=== PATIENT | male | born 1990 | race Caucasian/White ===

== ENCOUNTER 2017-04-12 11:39 | Emergency (ER) | payer SELFPAY ==
[~2017-04-12] VITALS: Ht 182.9 cm; Wt 79.0 kg
[2017-04-12] MEDS: ONDANSETRON HCL 4MG/2ML VIAL IV STA (12:40)
[2017-04-12] MEDS: SODIUM CHLORIDE 0.9% 1,000 ML IV ONE ×2 (12:40→15:20)
[2017-04-12 12:56] LABS: BASOPHILS % 0.4 % (0.0-2.0); EOSINOPHILS % 1.5 % (0.0-5.0); HEMATOCRIT. 44.2 % (42.0-52.0); HEMOGLOBIN. 15.3 g/dL (14.0-18.0); LYMPHOCYTES % 10.6 % (20.0-50.0); MEAN CORPUSCULAR HEMOGLOBIN 31.6 pg (28.0-32.0); MEAN CORPUSCULAR VOLUME 91.4 fL (80.0-94.0); MEAN PLATELET VOLUME 8.2 fl (7.4-10.4); MONOCYTES % 3.4 % (2.0-8.0); NEUTROPHILS % 84.1 % (40.0-76.0); PLATELET 185 x1000/uL (130-400); RED BLOOD CELL COUNT 4.83 mill/uL (4.7-6.1); RED CELL DISTRIBUTION WIDTH 12.8 % (11.6-14.6)
[2017-04-12 12:58] LABS: CLARITY URINE CLEAR (CLEAR); COLOR URINE YELLOW (YELLOW); KETONES URINE NEGATIVE (NEGATIVE); LEUKOCYTE ESTERASE URINE NEGATIVE (NEGATIVE); NITRITE URINE NEGATIVE (NEGATIVE); OCCULT BLOOD URINE 1+ (NEGATIVE); PROTEIN URINE NEGATIVE (NEGATIVE); UROBILINOGEN URINE 0.2 E.U./dL (0.2-1.0)
[2017-04-12] MEDS ORDERED: METOCLOPRAMIDE HCL 10MG/2ML VIAL IV ONE (13:00)
[2017-04-12 13:03] LABS: AMMONIA < 25 uMol/L (<32); CARBON DIOXIDE 27 mEq/L (21-32); CHLORIDE 109 mEq/L (98-107); ETHANOL BLOOD < 10 mg/dL
[2017-04-12 13:08] LABS: CREATINE KINASE 91 IU/L (39-308)
[2017-04-12 13:10] LABS: TROPONIN I < 0.02 ng/mL (0.00-0.04)
[2017-04-12] MEDS ORDERED: PROCHLORPERAZINE 10MG/2ML VIAL IV ONE (13:15)
[2017-04-12] MEDS: PROCHLORPERAZINE 10MG/2ML VIAL IV NR (13:37)
[2017-04-12 13:52] LABS: *AMPHETAMINES SCREEN URINE PRESUMTIVE POSITIVE (NEGATIVE); *BARBITURATES SCREEN URINE NEGATIVE (NEGATIVE); *BENZODIAZEPINES SCREEN URINE NEGATIVE (NEGATIVE); *COCAINE SCREEN URINE NEGATIVE (NEGATIVE); CANNABINOID URINE SCREEN NEGATIVE (NEGATIVE); METHADONE URINE SCREEN NEGATIVE (NEGATIVE); OPIATES URINE SCREEN NEGATIVE (NEGATIVE); PHENCYCLIDINE URINE SCREEN NEGATIVE (NEGATIVE)
[2017-04-12] MEDS ORDERED: TRAZODONE HCL 50MG TABLET PO PRN (18:00)
[2017-04-12] MEDS ORDERED: QUETIAPINE FUMARATE 100MG TABLET PO PRN (18:00)
[2017-04-12] MEDS: ONDANSETRON 4MG ODT PO ONE (19:10)
[2017-04-12] MEDS: QUETIAPINE FUMARATE 25MG TABLET PO SCH (23:39)
[2017-04-13] MEDS: ONDANSETRON HCL 4MG/2ML VIAL IV ONE (10:01)
[2017-04-13] MEDS: PANTOPRAZOLE SODIUM 40 MG/VIAL IV ONE (11:32)
[2017-04-13] MEDS: HYDRALAZINE 20MG/ML VIAL IV ONE (15:05)
[2017-04-13 20:30] VITALS: BP 141/85
== END 2017-04-13 20:55 ==
LOC: ER 11:43
DX: R11.10 Vomiting, unspecified (principal); F32.9 Major depressive disorder, single episode, unspecified
CPT/HCPCS: 36415; 71045; 80053; 80305; 80307; 80329; 81001; 82140; 82550; 84443; 84484; 85025; 93005; 96361; 96374; 96375; 96376; 99285; C9113; G0482; J0360; J0780; J2405; J7030; Q0162; Z7610

== ENCOUNTER 2019-01-29 12:48 | Emergency (ER) | payer MEDICAID ==
[~2019-01-29] VITALS: Ht 177.8 cm; Wt 80.0 kg
[2019-01-29 14:12] LABS: BASOPHILS % 0.3 % (0.0-2.0); EOSINOPHILS % 1.1 % (0.0-5.0); HEMATOCRIT. 42.7 % (42.0-52.0); HEMOGLOBIN. 15.1 g/dL (14.0-18.0); LYMPHOCYTES % 25.7 % (20.0-50.0); MEAN CORPUSCULAR HEMOGLOBIN 31.9 pg (28.0-32.0); MEAN CORPUSCULAR VOLUME 89.9 fL (80.0-94.0); MEAN PLATELET VOLUME 8.1 fl (7.4-10.4); MONOCYTES % 10.5 % (2.0-8.0); NEUTROPHILS % 62.4 % (40.0-76.0); PLATELET 201 x1000/uL (130-400); RED BLOOD CELL COUNT 4.75 mill/uL (4.7-6.1); RED CELL DISTRIBUTION WIDTH 12.6 % (11.6-14.6)
[2019-01-29 14:17] LABS: CHLORIDE 107 mEq/L (98-107)
[2019-01-29 14:22] LABS: ETHANOL BLOOD < 10 mg/dL
[2019-01-29 14:45] LABS: CLARITY URINE CLEAR (CLEAR); COLOR URINE YELLOW (YELLOW); KETONES URINE NEGATIVE (NEGATIVE); LEUKOCYTE ESTERASE URINE NEGATIVE (NEGATIVE); NITRITE URINE NEGATIVE (NEGATIVE); OCCULT BLOOD URINE NEGATIVE (NEGATIVE); PROTEIN URINE TRACE (NEGATIVE); SPECIFIC GRAVITY URINE 1.025 (1.005-1.030); UROBILINOGEN URINE 0.2 E.U./dL (0.2-1.0)
[2019-01-29 15:40] LABS: *AMPHETAMINES SCREEN URINE PRESUMTIVE POSITIVE (NEGATIVE); *BARBITURATES SCREEN URINE NEGATIVE (NEGATIVE); *BENZODIAZEPINES SCREEN URINE NEGATIVE (NEGATIVE); *COCAINE SCREEN URINE NEGATIVE (NEGATIVE); METHADONE URINE SCREEN NEGATIVE (NEGATIVE); OPIATES URINE SCREEN NEGATIVE (NEGATIVE); PHENCYCLIDINE URINE SCREEN NEGATIVE (NEGATIVE)
[2019-01-29 15:41] LABS: CANNABINOID URINE SCREEN NEGATIVE (NEGATIVE)
[2019-01-29] MEDS ORDERED: OLANZAPINE 5MG TABLET ODT PO ONE (17:00)
[2019-01-30 17:04] VITALS: BP 101/63
== END 2019-01-30 17:14 ==
LOC: ER 12:48
DX: R45.851 Suicidal ideations (principal); F20.9 Schizophrenia, unspecified; Z98.890 Other specified postprocedural states
CPT/HCPCS: 36415; 80053; 80305; 80307; 80320; 80329; 81003; 85025; 99285; Z7610; G0480